=== PATIENT | male | born 1990 | race Caucasian/White ===

== ENCOUNTER 2021-06-29 05:38 | Inpatient (IN) | payer OTHER ==
[2021-06-29 05:59] VITALS: BMI 30.7
[2021-06-29] MEDS ORDERED: LACTATED RINGERS SOLUTION 1000 ML INFUS.BAG IV ONE (06:14)
[2021-06-29] MEDS ORDERED: ONDANSETRON 4 MG/2 ML VIAL IVPUSH ONE (06:14)
[2021-06-29] MEDS ORDERED: FAMOTIDINE 20 MG/50 ML IVPB 20 MG/50 ML MG IVPB ONE (06:14)
[2021-06-29] MEDS ORDERED: FAMOTIDINE/PF 20 MG/2 ML VIAL ONE (06:20)
[2021-06-29] MEDS ORDERED: ONDANSETRON 4 MG/2 ML VIAL ONE (06:21)
[2021-06-29] MEDS ORDERED: FAMOTIDINE/PF 20 MG/2 ML VIAL IVPB ONE (06:30)
[2021-06-29 06:43] LABS: BASO % 0.5 % (0-2.0); EOS % 0.3 % (0-4.5); HEMATOCRIT 43.8 % (35.4-49); LYMPH % 46.3 % (8-40); MCH 30.8 pg (25.7-33.7); MCHC 34.1 g/dl (32.0-35.9); MEAN CELL VOLUME 90.3 fl (80-96); MEAN PLT VOLUME 9.7 fl (7.5-11.1); MONO % 8.3 % (3.8-10.2); NEUT % 44.6 % (42.8-82.8); PLATELET COUNT 153 10^3/uL (134-434); RBC 4.85 M/mm3 (4.00-5.60); RDW 13.8 % (11.9-15.9); WHITE BLOOD COUNT 6.2 K/mm3 (4.0-10.0)
[2021-06-29] MEDS ORDERED: METOCLOPRAMIDE HCL INJECTION 10 MG/2 ML VIAL IVPB ONE (06:55)
[2021-06-29 07:01] LABS: CHLORIDE 116 mmol/L (98-107); SODIUM 146 mmol/L (136-145)
[2021-06-29 07:03] LABS: ALBUMIN 4.3 g/dl (3.4-5.0); ANION GAP 7 MMOL/L (8-16); BLOOD UREA NITROGEN 9.6 mg/dL (7-18); CALCIUM 8.4 mg/dL (8.5-10.1); CO2 23 mmol/L (21-32); GLUCOSE,RANDOM 107 mg/dL (74-106); MAGNESIUM 2.4 mg/dL (1.8-2.4)
[2021-06-29] MEDS ORDERED: METOCLOPRAMIDE HCL INJECTION 10 MG/2 ML VIAL ONE (07:05)
[2021-06-29 07:06] LABS: CREATININE 0.8 mg/dL (0.55-1.3); SGOT/AST 16 U/L (15-37); SGPT/ALT 38 U/L (13-61)
[2021-06-29 07:08] LABS: BILIRUBIN,TOTAL 0.3 mg/dL (0.2-1); TOT PROT 7.8 g/dl (6.4-8.2)
[2021-06-29 07:09] LABS: ALK PHOS 91 U/L (45-117)
[2021-06-29] MEDS ORDERED: HALOPERIDOL DECANOATE 500 MG/5ML MDV IM ONE (09:09)
[2021-06-29] MEDS ORDERED: HALOPERIDOL LACTATE 5 MG/ML ONE (09:18)
[2021-06-29] MEDS ORDERED: LIDOCAINE VISCOUS 2% ORAL/TOP 15 ML UNIT-DOSE CUP MM ONE (10:30)
[2021-06-29] MEDS ORDERED: MAG HYDROX/AL HYDROX/SIMETH 30 ML UNIT-DOSE CUP PO ONE (10:30)
[2021-06-29] MEDS ORDERED: MAG HYDROX/AL HYDROX/SIMETH 30 ML UNIT-DOSE CUP ONE (10:40)
[2021-06-29] MEDS ORDERED: LIDOCAINE VISCOUS 2% ORAL/TOP 15 ML UNIT-DOSE CUP ONE (10:40)
[2021-06-29 12:40] LABS: URINE APPEARANCE CLEAR; URINE BILIRUBIN NEGATIVE (NEGATIVE); URINE COLOR YELLOW; URINE GLUCOSE (UA) NEGATIVE (NEGATIVE); URINE KETONE NEGATIVE (NEGATIVE); URINE LEUK ESTERASE NEGATIVE (NEGATIVE); URINE NITRITE NEGATIVE (NEGATIVE); URINE PROTEIN NEGATIVE (NEGATIVE); URINE UROBILINOGEN 0.2 mg/dL (0.2-1.0)
[2021-06-29] MEDS ORDERED: ONDANSETRON 4 MG/2 ML VIAL IVPUSH PRN (13:48)
[2021-06-29] MEDS ORDERED: D5-1/2NS+20 MEQ KCL - 20 MEQ/1,000 ML INFUS.BAG IV SCH (14:00)
[2021-06-29 15:24] LABS: PHENCYCLIDINE,URINE NEGATIVE (NEGATIVE); URINE BENZODIAZEPINES NEGATIVE (NEGATIVE)
[2021-06-29 15:25] LABS: COCAINE, UR NEGATIVE (NEGATIVE); METHADONE, UR NEGATIVE (NEGATIVE); OPIATES, URI NEGATIVE (NEGATIVE); URINE AMPHETAMINES NEGATIVE (NEGATIVE); URINE BARBITURATES NEGATIVE (NEGATIVE)
[2021-06-29] MEDS ORDERED: THIAMINE HCL 200 MG/2 ML VIAL ONE (17:57)
[2021-06-29] MEDS ORDERED: chlordiazePOXIDE HCL 25 MG CAPSULE ONE (17:57)
[2021-06-29] MEDS: chlordiazePOXIDE HCL 25 MG CAPSULE PO SCH ×2 (18:05→18:10)
[2021-06-29] MEDS: THIAMINE HCL 200 MG/2 ML VIAL IM SCH (18:05)
[2021-06-30] MEDS: chlordiazePOXIDE HCL 25 MG CAPSULE PO SCH (00:32)
[2021-06-30] MEDS ORDERED: diazePAM 5 MG TABLET PO PRN (00:32)
[2021-06-30] MEDS: diazePAM 5 MG TABLET PO SCH ×3 (00:38→12:00)
[2021-06-30] MEDS ORDERED: diazePAM 5 MG TABLET ONE ×2 (06:26→11:54)
[2021-06-30 07:22] VITALS: TEMP 97.7
[2021-06-30 08:09] LABS: BASO % 0.3 % (0-2.0); EOS % 0.5 % (0-4.5); HEMATOCRIT 38.7 % (35.4-49); HEMOGLOBIN 13.6 GM/dL (11.7-16.9); LYMPH % 33.7 % (8-40); MEAN CELL VOLUME 88.5 fl (80-96); MEAN PLT VOLUME 9.2 fl (7.5-11.1); MONO % 9.1 % (3.8-10.2); NEUT % 56.4 % (42.8-82.8); PLATELET COUNT 125 10^3/uL (134-434); RBC 4.38 M/mm3 (4.00-5.60); RDW 13.7 % (11.9-15.9); WHITE BLOOD COUNT 4.9 K/mm3 (4.0-10.0)
[2021-06-30 08:25] LABS: CALCIUM 8.8 mg/dL (8.5-10.1)
[2021-06-30 08:26] LABS: BLOOD UREA NITROGEN 10.5 mg/dL (7-18)
[2021-06-30 08:29] LABS: CREATININE 0.8 mg/dL (0.55-1.3)
[2021-06-30 08:30] LABS: BILIRUBIN,TOTAL 0.7 mg/dL (0.2-1)
[2021-06-30 08:31] LABS: TOT PROT 6.7 g/dl (6.4-8.2)
[2021-06-30 08:37] LABS: ALBUMIN 3.4 g/dl (3.4-5.0)
[2021-06-30] MEDS ORDERED: FAMOTIDINE 20 MG TABLET PO SCH (10:00)
[2021-06-30] MEDS ORDERED: FAMOTIDINE 20 MG TABLET ONE (10:47)
[2021-06-30] MEDS ORDERED: THIAMINE HCL 200 MG/2 ML VIAL ONE (11:11)
[2021-06-30] MEDS: THIAMINE HCL 200 MG/2 ML VIAL IM SCH (11:28)
[2021-06-30 12:19] VITALS: BP 114/76; PULSE 53
[2021-07-02] MEDS ORDERED: diazePAM 5 MG TABLET PO SCH (06:00)
[2021-07-03] MEDS ORDERED: diazePAM 5 MG TABLET PO SCH (06:00)
[2021-07-04] MEDS ORDERED: diazePAM 5 MG TABLET PO ONE (06:00)
== END 2021-06-30 14:00 | disposition other institution (70) | DRG 775 ==
LOC: JER 05:38 → JERBED 12:23
PROVIDERS: ADMIT Internal Medicine
PROC: HZ2ZZZZ Detoxification Services for Substance Abuse Treatment (ICD-10-PCS; principal; 2021-06-29)
DX: F10.139 Alcohol abuse with withdrawal, unspecified (principal); F10.129 Alcohol abuse with intoxication, unspecified; F12.90 Cannabis use, unspecified, uncomplicated; R07.9 Chest pain, unspecified; F17.210 Nicotine dependence, cigarettes, uncomplicated
CPT/HCPCS: 36415; 71045-TC-FY; 80053; 80307; 81003; 82550; 82553; 83735; 84484; 85025; 87086; 87804; 93005; 93010; 99285-25; C9803; U0003; U0005